=== PATIENT | female | born 1955 | race Caucasian/White ===

== ENCOUNTER 2016-12-26 15:31 | Emergency (ER) | payer OTHER, MEDICAID ==
[~2016-12-26] VITALS: Ht 152.4 cm; Wt 72.6 kg
[~2016-12-26 15:31] MED LIST: AMLO10TA; DICL75TA2 OR; ESTR1TAB3; INDO50CA82; LIDO5DIS40; LORA1TAB12 OR; POTA10TA34; PROMETHAZINE 25 MG; QUET50TA25 OR; TRIA37.575; [UNRECOGNIZED DRUG - CODE] OR; [UNRECOGNIZED DRUG - CODE] PO
[2016-12-26] MEDS ORDERED: HYDROmorphone HCL 2 MG/ML VL IM ONE (16:15)
[2016-12-26] MEDS ORDERED: ONDANSETRON HCL 4 MG/2 ML VIAL IM ONE (16:15)
[2016-12-26 17:00] VITALS: BP 103/69
== END 2016-12-26 17:11 | disposition home or self-care (01) ==
LOC: ER 15:33
DX: M54.2 Cervicalgia (principal); G89.18 Other acute postprocedural pain; I13.0 Hypertensive heart and chronic kidney disease with heart failure and stage 1 through stage 4 chronic kidney disease, or unspecified chronic kidney disease; N18.9 Chronic kidney disease, unspecified; I50.9 Heart failure, unspecified; Z88.2 Allergy status to sulfonamides; Z88.8 Allergy status to other drugs, medicaments and biological substances; Z91.041 Radiographic dye allergy status
CPT/HCPCS: 96372; 99284; J1170; J2405

== ENCOUNTER 2016-12-27 10:11 | Inpatient (IN) | payer OTHER, MEDICAID ==
[~2016-12-27] VITALS: Ht 157.5 cm; Wt 112.2 kg
[2016-12-27] MEDS ORDERED: SODIUM CHLORIDE 0.9% 1,000 ML IV ONE (10:30)
[2016-12-27 11:44] LABS: Basophils # (auto) 0 uL; Basophils % (auto) 0.3 % (0.0-2.0); Eosinophils # (auto) 0 uL; Hematocrit 41.3 % (36.0-46.0); Lymphocytes % (auto) 9.7 % (10.0-50.0); Mean Corpuscular Hgb Conc. 33.8 g/dL (32.0-36.0); Mean Corpuscular Volume 88.7 fL (80.0-100.0); Monocytes # (auto) 0.4 uL; Neutrophils # (auto) 8.8 uL; Platelet Count (auto) 276 10^3/uL (140-450); Red Blood Cells 4.66 10^6/uL (4.0-5.20); Red Cell Distribution Width 13.4 % (11.8-14.3); White Blood Cell 10.3 10^3/uL (4.4-10.8)
[2016-12-27 11:58] LABS: INR 0.98 (0.9-1.15); Partial Thromboplastin Time 21.2 sec (22.64-33.71); Prothrombin Time 10.7 sec (9.37-12.3)
[2016-12-27 12:11] LABS: Potassium 4.9 mmol/L (3.5-5.1)
[2016-12-27 12:12] LABS: BUN/Creatinine Ratio 12.2; Bilirubin, Total 0.4 mg/dL (0.2-1.0); Calcium 8.9 mg/dL (8.5-10.1)
[2016-12-27 12:13] LABS: Albumin 3.4 g/dL (3.4-5.0); Magnesium 2.5 mg/dL (1.6-2.6); Total Protein 7.3 g/dL (6.4-8.2)
[2016-12-27] MEDS ORDERED: HYDROmorphone HCL 2 MG/ML VL IV ONE (12:15)
[2016-12-27 12:51] LABS: Urine Bacteria MOD /hpf (None Seen); Urine Blood 2+ /uL (Negative); Urine Specific Gravity 1.016 (1.001-1.035); Urine WBC 2200 /hpf (0 - 5); Urine WBC Clumps PRESENT /hpf (None Seen)
[2016-12-27] MEDS ORDERED: cefTRIAXone 1GM/50ML D5W 50 ML IV ONE (13:30)
[2016-12-27] MEDS ORDERED: MORPHINE SULFATE 10 MG/ML INJ 1ML SDV IV PRN (14:00)
[2016-12-27] MEDS ORDERED: NITROGLYCERIN 0.4 MG SL TAB SL PRN (14:00)
[2016-12-27] MEDS ORDERED: ACETAMINOPHEN 500 MG TAB PO PRN (14:00)
[2016-12-27] MEDS: SODIUM CHLORIDE 0.9% 1,000 ML IV SCH (14:21)
[2016-12-27] MEDS: MORPHINE SULFATE 10 MG/ML INJ 1ML SDV IV PRN ×2 (15:55→20:56)
[2016-12-27] MEDS: ONDANSETRON HCL 4 MG/2 ML VIAL IV PRN ×2 (15:56→20:56)
[2016-12-27] MEDS: HYDROcodone-ACET 5/325MG TAB PO PRN (18:42)
[2016-12-27 23:00] VITALS: BP 151/76
[2016-12-27 23:21] VITALS: BP 151/76
[2016-12-28] MEDS: SODIUM CHLORIDE 0.9% 1,000 ML IV SCH (00:02)
[2016-12-28] MEDS: ONDANSETRON HCL 4 MG/2 ML VIAL IV PRN ×3 (01:05→18:33)
[2016-12-28] MEDS: MORPHINE SULFATE 10 MG/ML INJ 1ML SDV IV PRN ×6 (01:05→22:25)
[2016-12-28] MEDS: HYDROcodone-ACET 5/325MG TAB PO PRN (02:33)
[2016-12-28 05:11] VITALS: BP 149/88
[2016-12-28 07:37] LABS: Basophils # (auto) 0 uL; Basophils % (auto) 0.5 % (0.0-2.0); Eosinophils # (auto) 0 uL; Eosinophils % (auto) 0.3 % (0.0-7.0); Hematocrit 37.1 % (36.0-46.0); Hemoglobin 12.8 g/dL (12.2-16.2); Lymphocytes # (auto) 1.4 uL; Lymphocytes % (auto) 19.2 % (10.0-50.0); Mean Corpuscular Hemoglobin 29.8 pg (28.0-32.0); Mean Corpuscular Hgb Conc. 34.4 g/dL (32.0-36.0); Mean Corpuscular Volume 86.6 fL (80.0-100.0); Monocytes # (auto) 0.5 uL; Monocytes % (auto) 7.1 % (0.0-12.0); Neutrophils # (auto) 5.2 uL; Neutrophils % (auto) 72.9 % (37.0-80.0); Nucleated Red Blood Cells % 0.1 %; Platelet Count (auto) 267 10^3/uL (140-450); Red Blood Cells 4.29 10^6/uL (4.0-5.20); Red Cell Distribution Width 12.7 % (11.8-14.3); White Blood Cell 7.1 10^3/uL (4.4-10.8)
[2016-12-28 07:59] LABS: Albumin 3.1 g/dL (3.4-5.0); BUN/Creatinine Ratio 13.6; Bilirubin, Total 0.5 mg/dL (0.2-1.0); Calcium 8.6 mg/dL (8.5-10.1); Potassium 3.7 mmol/L (3.5-5.1); Total Protein 7.2 g/dL (6.4-8.2)
[2016-12-28 08:00] VITALS: BP 158/79
[2016-12-28 09:00] VITALS: BP 158/79
[2016-12-28] MEDS: cefTRIAXone 1GM/50ML D5W 50 ML IV SCH (10:32)
[2016-12-28 13:00] VITALS: BP 161/85
[2016-12-28] MEDS ORDERED: GUAI600T23 PO (14:48)
[2016-12-28] MEDS ORDERED: PREG100C PO (14:48)
[2016-12-28] MEDS ORDERED: FURO20TA3 PO (14:48)
[2016-12-28] MEDS ORDERED: ALPR0.5T7 PO (14:48)
[2016-12-28] MEDS ORDERED: TIZA4CAP7 PO (14:48)
[2016-12-28] MEDS ORDERED: PERCOT PO (14:48)
[2016-12-28] MEDS ORDERED: TRAZ50TA2 PO (14:48)
[2016-12-28] MEDS ORDERED: NALO1TAB2 PO (14:48)
[2016-12-28] MEDS ORDERED: PHEN37.577 PO (14:48)
[2016-12-28] MEDS ORDERED: LEVO88TA4 PO (14:48)
[2016-12-28] MEDS ORDERED: OXYCODONE W/ ACETAMINOPHEN 5/325MG TABLET PO PRN (16:45)
[2016-12-28] MEDS ORDERED: ALPRAZolam 0.5 MG TAB PO PRN (16:45)
[2016-12-28 17:00] VITALS: BP 144/92
[2016-12-28 22:00] VITALS: BP 155/74
[2016-12-28] MEDS ORDERED: traZODone HCL 50 MG TAB PO SCH (22:00)
[2016-12-29] MEDS: MORPHINE SULFATE 10 MG/ML INJ 1ML SDV IV PRN ×3 (02:20→10:45)
[2016-12-29 05:00] VITALS: BP 153/94
[2016-12-29] MEDS: HYDROcodone-ACET 5/325MG TAB PO PRN ×2 (05:21→16:54)
[2016-12-29] MEDS: ONDANSETRON HCL 4 MG/2 ML VIAL IV PRN (06:13)
[2016-12-29] MEDS ORDERED: LEVOTHYROXINE SODIUM 25 MCG TAB PO SCH (07:00)
[2016-12-29 09:00] VITALS: BP 135/82
[2016-12-29] MEDS: cefTRIAXone 1GM/50ML D5W 50 ML IV SCH (09:42)
[2016-12-29] MEDS ORDERED: TRIAMTERENE/HCTZ 37.5/25 MG CAP PO SCH (10:00)
[2016-12-29] MEDS ORDERED: [UNRECOGNIZED DRUG - CODE] IV (11:15)
[2016-12-29] MEDS ORDERED: PIPERACILLIN-TAZOB 3.375GM 100 ML IV SCH (12:00)
[2016-12-29 13:00] VITALS: BP 139/93
[2016-12-29 16:59] VITALS: BP 153/94
[2016-12-29] MEDS ORDERED: ERTAPENEM 1GM IN NS 50 ML IV SCH (18:00)
[2016-12-29] MEDS ORDERED: LIDOCAINE 1% HCL (LOCAL ANESTH.) INJ 20ML MDV ID ONE (18:30)
[2016-12-29 20:10] VITALS: BP 144/80
[2016-12-29] MEDS ORDERED: SODIUM CHLOR 0.9% PF (SALINE LOCK) 10ML VIAL IV SCH (22:00)
== END 2016-12-29 19:50 | disposition home health service (06) | DRG 871 ==
LOC: ER 10:11 → EDBD 10:11 → TELE 10:12 → TELE-WESTW 21:50
PROVIDERS: ADMIT Internal Medicine; ATTEND Hospitalist
PROC: 02HV33Z Insertion of Infusion Device into Superior Vena Cava, Percutaneous Approach (ICD-10-PCS; principal; 2016-12-29)
DX: A41.9 Sepsis, unspecified organism (principal); G93.41 Metabolic encephalopathy; N39.0 Urinary tract infection, site not specified; I13.0 Hypertensive heart and chronic kidney disease with heart failure and stage 1 through stage 4 chronic kidney disease, or unspecified chronic kidney disease; I50.9 Heart failure, unspecified; N18.9 Chronic kidney disease, unspecified; F32.9 Major depressive disorder, single episode, unspecified; G89.4 Chronic pain syndrome; Z16.12 Extended spectrum beta lactamase (ESBL) resistance; B96.4 Proteus (mirabilis) (morganii) as the cause of diseases classified elsewhere; Z88.2 Allergy status to sulfonamides; Z88.8 Allergy status to other drugs, medicaments and biological substances; Z79.899 Other long term (current) drug therapy; Z90.710 Acquired absence of both cervix and uterus; Z83.3 Family history of diabetes mellitus; Z80.9 Family history of malignant neoplasm, unspecified; Z82.49 Family history of ischemic heart disease and other diseases of the circulatory system
CPT/HCPCS: 36415; 36569; 70450; 71010; 80053; 81001; 83605; 83735; 84484; 85025; 85610; 85730; 87040; 87081; 87086; 87088; 87186; 93005; 96361; 96374; J0696; J1335; J2405; J2543